=== PATIENT | female | born 1995 | race Two or more races ===

== ENCOUNTER 2020-11-04 03:07 | Inpatient (IN) ==
[2020-11-04 03:35] VITALS: BMI 30.4
[2020-11-04 03:48] LABS: AMNISURE ROM TEST THERE IS A RUPTURE (NO RUPTURE)
[2020-11-04] MEDS ORDERED: REGLAN INJ 10 MG VIAL IVP PRN (04:21)
[2020-11-04] MEDS ORDERED: D5LR 1L W PITOCIN 10 UNITS/L 10 UNITS/1,000 ML BAG IV PRN (04:21)
[2020-11-04] MEDS ORDERED: PITOCIN IVP ONE (04:21)
[2020-11-04] MEDS ORDERED: PHENERGAN INJ 25 MG IM PRN ×2 (04:21→06:19)
[2020-11-04] MEDS ORDERED: STADOL INJ IVP PRN (04:22)
[2020-11-04] MEDS ORDERED: BETADINE SOLN ONE (04:28)
[2020-11-04] MEDS ORDERED: D5 1/2 NS 1L W PITOCIN 20 UNITS/L 20 UNITS/1,000 ML BAG IV ONE (04:29)
[2020-11-04] MEDS ORDERED: D5 1/2 NS 1000 ML 1,000 ML IV SCH (05:00)
[2020-11-04 05:01] LABS: BASOPHILS % (AUTO) 0.3 % (0.2-1.0); EOSINOPHILS # (AUTO) 0.1 x10^3/uL (0.0-0.2); EOSINOPHILS % (AUTO) 0.6 % (0.9-2.9); HEMATOCRIT 34.6 % (36.0-47.0); HEMOGLOBIN 11.3 g/dL (12.0-16.0); LYMPHOCYTES # (AUTO) 2.7 X10^3/uL (1.3-2.9); LYMPHOCYTES % (AUTO) 17.9 % (21.0-51.0); MEAN CORPUSCULAR HEMOGLOBIN 27.4 pg (27.0-34.0); MEAN CORPUSCULAR HGB CONC 32.8 g/dL (33.0-35.0); MEAN CORPUSCULAR VOLUME 83.5 fL (80.0-100.0); MEAN PLATELET VOLUME 7.8 fL (7.4-11.0); MONOCYTES # (AUTO) 0.9 x10^3/uL (0.3-0.8); MONOCYTES % (AUTO) 6.2 % (0.0-13.0); NEUTROPHILS # (AUTO) 11.4 x10^3/uL (2.2-4.8); PLATELET COUNT 219 X10^3/uL (150.0-450.0); RED BLOOD COUNT 4.14 X10^6/uL (3.5-5.4); RED CELL DISTRIBUTION WIDTH 14.8 % (11.6-16.5); WHITE BLOOD COUNT 15.2 X10^3/uL (3.6-10.0)
[2020-11-04 05:03] LABS: BLOOD UREA NITROGEN 11 mg/dL (7-18); CALCIUM 9.3 mg/dL (8.5-10.1); CARBON DIOXIDE 20.6 mmol/L (21-32); CHLORIDE 103 mmol/L (98-107); CREATININE 0.68 mg/dL (0.55-1.02); SODIUM 139 mmol/L (136-145); eGFR NON BLACK RACES > 60 (>60)
[2020-11-04] MEDS ORDERED: FENTANYL INJ 100 mcg ONE (05:20)
[2020-11-04] MEDS ORDERED: LR 1000 ML IV 1,000 ML IV ONE (05:21)
[2020-11-04] MEDS ORDERED: NAROPIN EPIDURAL 0.2% 100 ML ONE (05:21)
[2020-11-04] MEDS: D5 1/2 NS 1000 ML 1,000 ML with PITOCIN 20 UNITS IV SCH ×4 (06:05→15:28)
--- NOTE | 2020-11-04 06:19 | DR.OB ---
OB Quick Note - Assessment/Plan Assessment/Plan: Delivery Note MIME ARTIST 11/04/20 at 6:00am Patient complete and pushing. Head delivered over intact perineum. No nuchal cord. Nose and mouth bulb suctioned. Body delivered over intact perineum. Cord clamped x 2 and cut. Infant handed to attendant. Cord sent for gases. Placenta delivered spontaneously / intact / 3 vessel cord. No CVX / vaginal / perineal tears noted. Viable male , VTX/OA, wt=8'1" and 9/9, stable to NBN. Mother stable to RR. MSY=575yo.
[2020-11-04] MEDS ORDERED: MILK OF MAGNESIA PO PRN (08:11)
[2020-11-04] MEDS ORDERED: DERMOPLAST PAIN RELIEF SPRAY TOP PRN (08:11)
[2020-11-04] MEDS ORDERED: AMBIEN PO PRN (08:11)
[2020-11-04] MEDS ORDERED: ADACEL or BOOSTRIX TDaP VACCINE IM ONE (08:11)
[2020-11-04] MEDS: MOTRIN TAB 800 MG PO PRN (08:38)
[2020-11-04] MEDS: PRENATAL PLUS PO SCH (10:54)
[2020-11-05] MEDS: D5 1/2 NS 1000 ML 1,000 ML with PITOCIN 20 UNITS IV SCH ×4 (01:13→08:24)
[2020-11-05] MEDS: MOTRIN TAB 800 MG PO PRN (01:13)
[2020-11-05 05:42] LABS: HEMATOCRIT 26.5 % (36.0-47.0)
[2020-11-05 05:44] LABS: HEMOGLOBIN 8.6 g/dL (12.0-16.0)
[2020-11-05] MEDS: PRENATAL PLUS PO SCH (08:28)
[2020-11-05 11:41] VITALS: BP 108/75
== END 2020-11-05 12:24 | disposition home or self-care (01) | DRG 807 ==
LOC: ER 03:12 → LD 04:08 → ER 04:09 → MED/SURG 07:17
PROVIDERS: ADMIT Specialist; ATTEND Specialist
DX: Z3A.38 38 weeks gestation of pregnancy; Z37.0 Single live birth; O80 Encounter for full-term uncomplicated delivery

== ENCOUNTER 2022-06-03 06:45 | Inpatient (IN) ==
[2022-06-03] MEDS ORDERED: LR 1,000 ML IV 1,000 ML IV ONE ×3 (06:57→12:52)
[2022-06-03] MEDS ORDERED: D5 LR + PITOCIN 10 UNITS/L 10 UNITS/1,000 ML BAG IV ONE (06:58)
[2022-06-03] MEDS ORDERED: PITOCIN IVP ONE (07:16)
[2022-06-03] MEDS ORDERED: PHENERGAN INJ 25 MG IM PRN ×2 (07:16→14:14)
[2022-06-03] MEDS ORDERED: MORPHINE SULFATE INJ 2 MG INJ IVP PRN (07:16)
[2022-06-03] MEDS ORDERED: DILAUDID INJ IVP PRN (07:16)
[2022-06-03] MEDS ORDERED: REGLAN INJ 10 MG VIAL IVP PRN (07:16)
[2022-06-03] MEDS ORDERED: D5 LR + PITOCIN 10 UNITS/L 10 UNITS/1,000 ML BAG IV PRN (07:16)
[2022-06-03] MEDS ORDERED: STADOL INJ IVP PRN (07:22)
[2022-06-03 07:38] LABS: BILIRUBIN,URINE NEGATIVE (NEGATIVE); BLOOD/HEMOGLOBIN,URINE 1+ (NEGATIVE); GLUCOSE, URINE NEGATIVE (NEGATIVE); KETONES,URINE NEGATIVE (NEGATIVE); LEUKOCYTE ESTERASE ,URINE 3+ (NEGATIVE); NITRITES,URINE NEGATIVE (NEGATIVE); PROTEIN,URINE NEGATIVE (NEGATIVE); UROBILINOGEN,URINE NORMAL (NORMAL)
[2022-06-03 07:49] LABS: APPEARANCE,URINE HAZY (CLEAR); COLOR,URINE YELLOW (YELLOW)
[2022-06-03 07:50] LABS: BASOPHILS # (AUTO) 0.1 X10^3/uL (0.0-0.1); BASOPHILS % (AUTO) 0.6 % (0.2-1.0); EOSINOPHILS # (AUTO) 0.1 x10^3/uL (0.0-0.2); HEMATOCRIT 33.2 % (36.0-47.0); HEMOGLOBIN 10.9 g/dL (12.0-16.0); LYMPHOCYTES # (AUTO) 2.3 X10^3/uL (1.3-2.9); LYMPHOCYTES % (AUTO) 20.4 % (21.0-51.0); MEAN CORPUSCULAR HEMOGLOBIN 25.5 pg (27.0-34.0); MEAN CORPUSCULAR HGB CONC 32.7 g/dL (33.0-35.0); MEAN PLATELET VOLUME 7.6 fL (7.4-11.0); MONOCYTES # (AUTO) 0.7 x10^3/uL (0.3-0.8); MONOCYTES % (AUTO) 5.8 % (0.0-13.0); NEUTROPHILS # (AUTO) 8.1 x10^3/uL (2.2-4.8); NEUTROPHILS % (AUTO) 72.2 % (42.0-75.0); RED BLOOD COUNT 4.25 X10^6/uL (3.5-5.4); WHITE BLOOD COUNT 11.3 X10^3/uL (3.6-10.0)
[2022-06-03 07:50] LABS: BACTERIA,URINE 2+ /HPF (NEGATIVE); SQUAMOUS EPITHELIAL CELL,UR NUMEROUS /HPF (NEGATIVE)
[2022-06-03 07:54] LABS: BLOOD UREA NITROGEN 9 mg/dL (7-18); CALCIUM 8.5 mg/dL (8.5-10.1); CARBON DIOXIDE 22.9 mmol/L (21-32); CHLORIDE 103 mmol/L (98-107); CREATININE 0.44 mg/dL (0.55-1.02); SODIUM 137 mmol/L (136-145); eGFR NON BLACK RACES > 60 (>60)
[2022-06-03] MEDS ORDERED: D5 1/2 NS 1,000 ML 1,000 ML IV SCH (08:00)
[2022-06-03] MEDS ORDERED: FENTANYL VIAL INJ 100 mcg ONE (10:58)
[2022-06-03] MEDS ORDERED: NAROPIN EPIDURAL 0.2% 100 ML ONE (11:00)
[2022-06-03] MEDS ORDERED: EPHEDRINE SULFATE INJ ONE (11:35)
[2022-06-03] MEDS ORDERED: PITOCIN ONE (12:52)
[2022-06-03] MEDS ORDERED: XYLOCAINE 1 % (PLAIN) ONE (13:12)
[2022-06-03] MEDS ORDERED: LR 1,000 ML IV 1,000 ML with PITOCIN 20 UNITS IV ONE ×2 (14:00)
[2022-06-03] MEDS ORDERED: MOTRIN TAB 800 MG PO PRN (14:57)
[2022-06-03] MEDS ORDERED: MILK OF MAGNESIA PO PRN (14:57)
[2022-06-03] MEDS ORDERED: ADACEL or BOOSTRIX TDaP VACCINE IM ONE (14:57)
[2022-06-03] MEDS ORDERED: DERMOPLAST PAIN RELIEF SPRAY TOP PRN (14:57)
[2022-06-03] MEDS ORDERED: AMBIEN PO PRN (14:57)
[2022-06-03] MEDS: MOTRIN TAB 800 MG PO PRN (21:38)
[2022-06-04] MEDS ORDERED: NS 100 ML IV 100 ML with VENOFER 400 MG IV NR ×2 (07:46)
[2022-06-04] MEDS ORDERED: PRENATAL PLUS PO SCH (09:00)
[2022-06-04] MEDS ORDERED: ADACEL or BOOSTRIX TDaP VACCINE IM ONE (09:00)
[2022-06-04] MEDS: MOTRIN TAB 800 MG PO PRN (15:20)
[2022-06-04 15:36] VITALS: BP 114/76
== END 2022-06-04 19:15 | disposition home or self-care (01) | DRG 768 ==
LOC: LD 06:45 → MED/SURG 16:14
PROVIDERS: ADMIT Obstetrics & Gynecology Obstetrics; ATTEND Obstetrics & Gynecology Obstetrics
DX: Z3A.39 39 weeks gestation of pregnancy; O71.82 Other specified trauma to perineum and vulva; Z37.0 Single live birth; N90.89 Other specified noninflammatory disorders of vulva and perineum; Z20.822 Contact with and (suspected) exposure to COVID-19; O26.893 Other specified pregnancy related conditions, third trimester